=== PATIENT | male | born 1995 | race Caucasian/White ===

== ENCOUNTER 2017-10-15 17:31 | Emergency (ER) | payer BC, MEDICAID ==
[~2017-10-15] VITALS: Ht 185.4 cm; Wt 77.1 kg
[2017-10-15 17:36] VITALS: BP 125/72
[2017-10-15] MEDS ORDERED: IBUPROFEN 600 MG TAB PO ONE (21:15)
== END 2017-10-15 22:38 | disposition home or self-care (01) ==
LOC: ER 17:31
DX: S52.514A Nondisplaced fracture of right radial styloid process, initial encounter for closed fracture (principal); F17.210 Nicotine dependence, cigarettes, uncomplicated; V00.131A Fall from skateboard, initial encounter; Y93.51 Activity, roller skating (inline) and skateboarding; Y99.8 Other external cause status; Y92.89 Other specified places as the place of occurrence of the external cause
CPT/HCPCS: 29125; 73100